=== PATIENT | male | born 1960 | race Caucasian/White ===

== ENCOUNTER → 2019-09-24 | Outpatient (REF) | payer SELFPAY ==
[~2019-09-24] MED LIST: ACET-683 PO; ACET-897 PO; HYDR200T3; HYDR200T3 PO; INDO-16; INDO-16 PO; META28.32 PO; OXYC-517 PO; VITA100016 PO; VITMTA PO; [UNRECOGNIZED DRUG - CODE]; [UNRECOGNIZED DRUG - CODE] INJ
[2019-09-24 16:43] LABS: HEMATOCRIT 28.7 % (42.0-52.0); HEMOGLOBIN 8.7 g/dl (13.5-17.5); MEAN CORPUSCULAR HEMOGLOBIN 26.4 pg (27.0-33.0); MEAN CORPUSCULAR HGB CONC 30.3 g/dl (32.0-36.5); PLATELET COUNT, AUTOMATED 286 10^3/uL (150-450)
[2019-09-24 17:02] LABS: WHITE BLOOD COUNT 8.7 10^3/uL (4.0-10.0)
[2019-09-24 19:24] LABS: ATYPICAL LYMPH 21 % (0-5); EOSINOPHILS 1 % (0-3); LYMPHOCYTES 54 % (16-44); MONOCYTES 8 % (0-5); NEUTROPHILS 15 % (28-66)
[2019-09-24 19:25] LABS: ANISOCYTOSIS 1+; OVALOCYTES 1+; PLATELET ESTIMATE NORMAL (NORMAL); POIKILOCYTOSIS 1+
== END ==
LOC: M LABDRAWC 15:53
PROVIDERS: ATTEND Nurse Practitioner Family
DX: C91.Z0 Other lymphoid leukemia not having achieved remission (principal)

== ENCOUNTER 2019-09-25 22:16 | Emergency (ER) | payer BC, SELFPAY ==
[~2019-09-25] VITALS: Ht 182.9 cm; Wt 97.7 kg
[2019-09-25] MEDS ORDERED: INDO-16 (22:37)
[2019-09-25] MEDS ORDERED: ACET-683 PO (22:37)
[2019-09-25] MEDS ORDERED: HYDR200T3 (22:37)
[2019-09-25] MEDS ORDERED: [UNRECOGNIZED DRUG - CODE] (22:37)
[2019-09-25] MEDS ORDERED: NS 1,000 ML IV ONE (23:30)
[2019-09-26] MEDS ORDERED: ISOVUE-370 76% 100ML VIAL As Ordered ONE (00:29)
[2019-09-26 00:31] LABS: ALBUMIN 2.5 GM/DL (3.2-5.2); ALT/SGPT 13 U/L (12-78); BILIRUBIN,DIRECT 0.1 MG/DL (0.0-0.2); BILIRUBIN,TOTAL 0.2 MG/DL (0.2-1.0); BLOOD UREA NITROGEN 19 MG/DL (7-18); CALCIUM LEVEL 8.1 MG/DL (8.5-10.1); CARBON DIOXIDE LEVEL 25 MEQ/L (21-32); CHLORIDE LEVEL 105 MEQ/L (98-107); CREATININE FOR GFR 0.94 MG/DL (0.70-1.30); GLOMERULAR FILTRATION RATE > 60.0 (>56); GLUCOSE, FASTING 104 MG/DL (70-100); HEMATOCRIT 27.1 % (42.0-52.0); HEMOGLOBIN 8.2 g/dl (13.5-17.5); MEAN CORPUSCULAR HGB CONC 30.3 g/dl (32.0-36.5); PLATELET COUNT, AUTOMATED 238 10^3/uL (150-450); POTASSIUM SERUM 4.1 MEQ/L (3.5-5.1); RED BLOOD COUNT 3.15 10^6/uL (4.30-6.10); SODIUM LEVEL 136 MEQ/L (136-145); TOTAL PROTEIN 7.5 GM/DL (6.4-8.2)
[2019-09-26 00:36] LABS: WHITE BLOOD COUNT 15.6 10^3/uL (4.0-10.0)
[2019-09-26 01:25] LABS: BASOPHILS 1 % (0-1); LYMPHOCYTES 74 % (16-44); MONOCYTES 4 % (0-5); NEUTROPHILS 21 % (28-66)
[2019-09-26 01:26] LABS: PLATELET ESTIMATE NORMAL (NORMAL)
[2019-09-26 01:27] LABS: ANISOCYTOSIS 1+
--- NOTE | 2019-09-26 01:45 | REPVR ---
PROCEDURE INFORMATION: Exam: CT Chest With Contrast Exam date and time: 09/26/2019 12:13 AM Age: 59 years old Clinical indication: Fever; Patient HX: HX surgery abdominal; Additional info: Fever/ pericardial effusion TECHNIQUE: Imaging protocol: Computed tomography of the chest with intravenous contrast. Radiation optimization: All CT scans at this facility use at least one of these dose optimization techniques: automated exposure control; mA and/or kV adjustment per patient size (includes targeted exams where dose is matched to clinical indication); or iterative reconstruction. Contrast material: ISO; Contrast volume: 100 ml; Contrast route: INTRAVENOUS (IV); COMPARISON: CR PORTABLE CHEST X-RAY 09/25/2019 11:52 PM FINDINGS: Limitations: Examination is limited by motion artifact. Tracheobronchial tree: Visualized airway is unremarkable. Lungs: Centrilobular and paraseptal emphysematous lung disease predominantly in the upper lobes. Consolidation and atelectasis in the right lower lobe. Subsegmental atelectasis in the left lower lobe. Linear atelectasis in the lingula. Pleural space: Mild bilateral pleural effusions, right greater than left. No pneumothorax. Heart: Moderate pericardial effusion measuring up to 1.8 cm thick. Heart size is within normal limits. Aorta: Mild atherosclerotic disease. No aortic aneurysm. Lymph nodes: Multiple small mediastinal nodes. Bones/joints: Mild degenerative spine. No acute fracture. Soft tissues: Unremarkable. IMPRESSION: 1. Consolidation and atelectasis in the right lower lobe. Suspicious for pneumonia. 2. Mild bilateral pleural effusions. 3. Moderate pericardial effusion. Unknown etiology. Pericardial empyema cannot be excluded. Electronically signed by: Simona Leo On 09/26/2019 01:45:04 AM
--- NOTE | 2019-09-26 01:49 | REPVR ---
PROCEDURE INFORMATION: Exam: CT Abdomen And Pelvis With Contrast Exam date and time: 09/26/2019 12:13 AM Age: 59 years old Clinical indication: Fever; Additional info: Fever/ recent surgery TECHNIQUE: Imaging protocol: Computed tomography of the abdomen and pelvis with intravenous contrast. Radiation optimization: All CT scans at this facility use at least one of these dose optimization techniques: automated exposure control; mA and/or kV adjustment per patient size (includes targeted exams where dose is matched to clinical indication); or iterative reconstruction. Contrast material: ISO; Contrast volume: 100 ml; Contrast route: INTRAVENOUS (IV); COMPARISON: No relevant prior studies available. FINDINGS: Lungs: Right lower lobe lung consolidation and atelectasis. Pleural space: Bilateral pleural effusions. Heart: Pericardial effusion. See CT chest report. Liver: Normal. No mass. Gallbladder and bile ducts: Normal. No calcified stones. No ductal dilation. Pancreas: Normal. No ductal dilation. Spleen: Normal. No splenomegaly. Adrenals: Normal. No mass. Kidneys and ureters: Normal. No hydronephrosis. Stomach and bowel: Status post partial small bowel resection. Status post sigmoid colon resection. Colonic diverticulosis without diverticulitis. No abnormal bowel dilatation. Severe stool in the colon. No abnormal bowel wall thickening. Appendix: Appendix is normal. Intraperitoneal space: No free air. No significant fluid collection. Mild inflammatory changes adjacent to the enteroenteric anastomosis in the right mid abdomen. Vasculature: No abdominal aortic aneurysm. Moderate atherosclerotic disease. Lymph nodes: Unremarkable. No enlarged lymph nodes. Bladder: Diffuse thickening of the bladder. Reproductive: Unremarkable as visualized. Bones/joints: Unremarkable. No acute fracture. Soft tissues: Postsurgical changes in the ventral right mid abdomen wall. Question recent enterostomy take-down. Cellulitis cannot be excluded. IMPRESSION: 1. Diffuse thickening of the bladder. Suspicious for cystitis. 2. Mild inflammatory changes adjacent to the enteroenteric anastomosis in the right mid abdomen. Consistent with postsurgical changes. Enteritis cannot be excluded. Correlate with history. 3. Postsurgical changes in the ventral right mid abdomen wall. Question recent enterostomy take-down. 4. See also CT chest report. Electronically signed by: Simona Leo On 09/26/2019 01:49:13 AM
[2019-09-26] MEDS ORDERED: cefTRIAXone SOD 1 GM in D5W MINI-BAG PLUS 50 ML IV ONE (02:45)
[2019-09-26 03:09] LABS: INR 1.18; PROTHROMBIN TIME 14.7 SECONDS (11.8-14.0)
[2019-09-26] MEDS: AZITHROMYCIN INJ 500 MG, VIAL MATE ADAPTER 1 EACH in D5W 250 ML IV ONE ×2 (03:12→04:00)
[2019-09-26] MEDS ORDERED: [UNRECOGNIZED DRUG - CODE] INJ (03:30)
[2019-09-26] MEDS ORDERED: HYDR200T3 PO (03:30)
[2019-09-26] MEDS ORDERED: VITMTA PO (03:30)
[2019-09-26] MEDS ORDERED: VITA100016 PO (03:30)
[2019-09-26] MEDS ORDERED: META28.32 PO (03:30)
[2019-09-26] MEDS ORDERED: INDO-16 PO (03:30)
[2019-09-26] MEDS ORDERED: ACET-897 PO (03:30)
[2019-09-26] MEDS ORDERED: OXYC-517 PO (03:30)
[2019-09-26] MEDS ORDERED: MOM 30ML SUSPENSION UDC PO PRN (03:45)
[2019-09-26] MEDS ORDERED: ACETAMINOPHEN TAB 650MG DOSE (2X325MG) PO PRN (03:45)
--- NOTE | 2019-09-26 03:52 | HPEPDOC ---
[facility] Medical History & Physical Date of Admission Sep 26, 2019 Date of Service: Sep 26, 2019 Attending Physician: DORYS GARZA MD History and Physical TIME OF SERVICE: 2:50 AM CHIEF COMPLAINT: Fever HISTORY OF PRESENT ILLNESS: This is a 59-year-old gentleman who lives close to [place] and is in the area on vacation. He came to the hospital because he had a fever as high as the 104. 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 The patient reports having a history of low-grade fevers in the past but not as high as it was today. Despite taking Tylenol and Indomethacin, he had persistent fevers yesterday. The patient denies having any chest pain, runny nose, cough, shortness of breath, dizziness, headache, nausea, vomiting, diarrhea, or any pain with urination. In March of this year he went to his local hospital for evaluation of fevers and was noted to have high lymphocyte count . During that admission, he had a CT scan that identified an abscess and diverticulitis. He was given antibiotics and sent home. After 3 courses of antibiotics, he had a right hemicolectomy and placement of colostomy in April. During his hospital admission in March, he was also diagnosed with T-cell large granular lymphocytic leukemia; according to the patient he has not started chemotherapy. The reversal of the colostomy reversal was delayed until September 05 because of the COVID pandemic. During the most recent hospital admission in August, the patient complained of shortness of breath, had an echocardiogram done and was told that he had fluid around his heart. He had a pericardial drain placed for 2 days and had about 200 mils of fluid drained. According to the patient his team at [facility] was unable to find a definitive cause of the effusion, but thought it might be related to rheumatoid arthritis or possibly bacterial in nature but the cultures might of been negative, because the patient was on antibiotics at the time. After the drain was removed, the patient had a repeat echo and was told that there is still fluid around his heart. He scheduled for another echo in the near future. REVIEW OF SYSTEMS: 12 point review of systems negative except as listed in HPI PAST MEDICAL/ SURGICAL HISTORY: T-cell large granulocyte leukemia Rheumatoid arthritis Pericardial Effusion of unclear cause History of diverticulitis with abscess requiring right hemicolectomy with colostomy placement and subsequent reversal of colostomy SOCIAL HISTORY: He is a former smoker He drinks socially FAMILY HISTORY: He denies knowledge of any family medical problems ALLERGIES: Please see below. HOME MEDICATIONS: Please see below. PHYSICAL EXAMINATION: Vital Signs Date Time Temp Pulse Resp B/P (MAP) Pulse Ox O2 Delivery O2 Flow Rate FiO2 09/25/19 22:17 99.5 101 18 95/56 (69) 94 Room Air GEN: well-nourished / well developed/ NAD INTEGUMENT: not flushed/ not diaphoretic HEENT: NCAT / lips acyanotic /mucus membranes moist and pink CVS: RRR/NMRG/ denies chest pain when asked to lean forward, no pericardial rub audiable / radial pulses intact / no lower extremity edema LUNGS: no coughing / lungs are clear to auscultation ABDOMEN: Contour (flat) / post surgical incision sites on right side of abdomen is draining serous fluid , post surgical site at lower abdomen is covered with clean and dry dressing MSK/EXTREMITIES: range of motion intact x 4 extremities / requires assistance to sit up NEURO: CN 2-12 are grossly intact / speech is not dysarthric PSYCH: alert and oriented to person place and time/ able to understand and follow all commands LABORATORY DATA: Laboratory Tests 09/25/19 23:22 Neutrophils (%) (Auto) , Nucleated Red Blood Cells % (auto) 0.0, Neutrophils 21L, Lymphocytes (Manual) 74H, Monocytes (Manual) 4, Basophils (Manual) 1, Anisocytosis 1+, Platelet Estimate NORMAL, Anion Gap 6L, Glomerular Filtration Rate > 60.0, Calcium Level 8.1L, Total Bilirubin 0.2, Direct Bilirubin 0.1, Asp artate Amino Transf (AST/SGOT) 15, Alanine Aminotransferase (ALT/SGPT) 13, Alkaline Phosphatase 176H, Total Protein 7.5, Albumin 2.5L, Albumin/Globulin Ratio 0.5 09/25/19 23:45: Urine Color YELLOW, Urine Appearance CLEAR, Urine pH 5.0, Urine Specific [place] 1.010, Urine Protein NEGATIVE, Urine Glucose (UA) NEGATIVE, Urine Ketones NEGATIVE, Urine Blood NEGATIVE, Urine Nitrite NEGATIVE, Urine Bilirubin NEGATIVE, Urine Urobilinogen 0.2, Urine Leukocyte Esterase NEGATIVE, Urine WBC (Auto) 1, Urine RBC (Auto) 2, Urine Hyaline Casts (Auto) 2, Urine Bacteria (Auto) NEGATIVE, Urine Squamous Epithelial Cells 0, Urine Sperm (Auto) 09/26/19 00:00: Prothrombin Time 14.7H, Prothromb Time International Ratio 1.18 IMAGING: CT abdomen/pelvis "IMPRESSION: 1. Diffuse thickening of the bladder. Suspicious for cystitis. 2. Mild inflammatory changes adjacent to the enteroenteric anastomosis in the right mid abdomen. Consistent with postsurgical changes. Enteritis cannot be excluded. Correlate with history. 3. Postsurgical changes in the ventral right mid abdomen wall. Question recent enterostomy take-down. 4. See also CT chest report. " Chest xray "IMPRESSION: 1. Consolidation and atelectasis in the right lower lobe. Suspicious for pneumonia. 2. Mild bilateral pleural effusions. 3. Moderate pericardial effusion. Unknown etiology. Pericardial empyema cannot be excluded." MICROBIOLOGY: Please see below. ASSESSMENT: Mr. Burrows is a 59-year-old with a history of rheumatoid arthritis and T-cell leukemia who presented for evaluation of fever and will be admitted for evaluation of sepsis possibly due to pneumonia and subacute ? pericardial effusion. PLAN: 1. Sepsis possibly secondary to pneumonia SIRS criteria include Temp >101 / HR >90 / WBC >12 CT scan showed right-sided pneumonia with bilateral pleural effusions , but the patient denied having any URI symptoms Plan: admit to ICU / f/u sputum & blood cx,strep pneumo, Legionella, MRSA / switch from ceftriaxone and azithromycin to Zosyn and Levaquin / IVF / Acetaminophen PRN for fever 2. Pericardial effusion. Cause unclear His SBP is in the 90s EKG showed low voltage, Hr was 89 but no electrical alterans Plan: Stat echo and coags/follow up with Dr. Casey/nothing by mouth with IV fluids / request records from [facility] / hold indomethacin for now 3. Hypotension possibly 2/2 infection vs pericardial effusion Plan: IVF 4. Anemia Plan: f/u repeat CBC 5. Rheumatoid arthritis Plan: Hydroxychloroquine 6. Post surgical wounds Plan: wound care 7. Possible Cystitis / Enteritis on CT Pt denies abdominal pain Plan: abx / continue to monitor for symptoms / wound care 8. Deconditioning Plan: PT DVT PROPHYLAXIS: SCDs DISPOSITION: will likely need at least 2 midnight's stay Laboratory Data Microbiology Microbiology 09/25/19 Respiratory Virus Panel (PCR) ([facility]) - Final, Complete 09/25/19 Blood Culture, Received Pending 09/25/19 Blood Culture, Received Pending Home Medications Scheduled Cholecalciferol (Vitamin D3) (Vitamin D3) 25 Mcg Tablet, 25 MCG PO DAILY Filgrastim-Sndz (Zarxio) 300 Mcg/0.5 Ml Syringe, 300 MCG INJ ASDIRECTED TYPICALLY TUESDAY, TUESDAY AND TUESDAY Hydroxychloroquine Sulfate (Hydroxychloroquine Sulfate) 200 Mg Tablet, 400 MG PO DAILY Indomethacin (Indomethacin) 25 Mg Capsule, 25 MG PO BID Multivitamins (Thera M Plus Tablet) 1 Each Tablet, 1 TAB PO DAILY Psyllium Husk (with Sugar) (Metamucil Powder) 575 Gm Powder, 1 PKT PO DAILY Scheduled PRN Acetaminophen (Tylenol Extra Strength) 500 Mg Tablet, 1,000 MG PO Q6H PRN for PAIN Oxycodone HCl (Oxycodone HCl) 5 Mg Tablet, 5 MG PO Q4H PRN for PAIN Allergies Coded Allergies: No Known Allergies (Unverified , 09/25/19) A-FIB/CHADSVASC A-FIB History Current/History of A-Fib/PAF?: No Current PO Anticoag Therapy: No DORYS GARZA MD Sep 26, 2019 03:52
[2019-09-26 04:30] VITALS: BP 99/61
[2019-09-26] MEDS ORDERED: PIPERACILLIN/TAZOBACTAM SOD 4.5 GM in D5W MINI-BAG PLUS 100 ML IV SCH (06:00)
[2019-09-26] MEDS ORDERED: LevoFLOXacin 750 MG TABLET PO SCH (06:00)
--- NOTE | 2019-09-26 06:17 | ECGEPIP ---
[facility] - ED Test Date: 2019-09-25 Pat Name: FUENTES HAHN Department: Room: - Gender: Male Assembly Manager: todd : 1960 Requested By: JO ANN West Order Number: [id number] Reading MD: Yo Harrison Measurements Intervals [place] Rate: 89 P: 36 MO: 141 QRS: 19 QRSD: 94 T: 29 QT: 386 QTc: 470 Interpretive Statements SINUS RHYTHM POOR R WAVE PROGRESSION NONSPECIFIC T-WAVE ABNORMALITY NO PRIORS FOR COMPARISON Electronically Signed on 09-26-2019 6:17:26 EDT by Yo Harrison
--- NOTE | 2019-09-26 08:12 | REP ---
Clinical: Cough and dyspnea. Comparison: None. Findings: Mediastinum and cardiac silhouette suggest cardiomegaly. Bibasilar atelectasis and possible small right pleural effusion noted. No pneumothorax. Skeletal structures intact. Impression: Cardiomegaly. Bibasilar atelectasis and small right pleural effusion. Electronically Signed by Xavi Ferreira MD 09/26/2019 08:04 A
[2019-09-26] MEDS ORDERED: HYDROXYCHLOROQUINE 200 MG TAB PO SCH (09:00)
--- NOTE | 2019-09-26 09:19 | ED PDOC ---
Post-Departure Follow-Up santi knox faxed formal report of ct chest for fu Grant Rodriguez MD Sep 26, 2019 09:19
== END 2019-09-26 05:23 | disposition left against medical advice (07) ==
LOC: M ED 22:16
DX: J18.9 Pneumonia, unspecified organism (principal); C91.50 Adult T-cell lymphoma/leukemia (HTLV-1-associated) not having achieved remission; I31.3 Pericardial effusion (noninflammatory); K57.90 Diverticulosis of intestine, part unspecified, without perforation or abscess without bleeding; Z79.899 Other long term (current) drug therapy
CPT/HCPCS: 71045; 71260; 74177; 80048; 80076; 81001; 85025; 85610; 87040; 87486; 87581; 87633; 87798; 93005; 93041; 94760; 96365; 99285; J0696; Q9967